=== PATIENT | female | born 1935 | race Caucasian/White ===

== ENCOUNTER 2023-04-11 11:26 | Day surgery (SDC) | payer MEDICARE, BC ==
[2023-04-11] MEDS: Lactated Ringers 1,000 ML IV SCH ×2 (10:35→14:27)
[~2023-04-11 11:26] MED LIST: EPINEPHrine 1 MG/ML SDV ONE; HYDROmorphone 0.5 MG/0.5 ML Syringe IVPUSH PRN; Lactated Ringers 1,000 ML IV SCH; Lidocaine 1% 2 ML ONE; Lidocaine 1%/Sod Bicarbonate in NS 8.4% 1 ML Syringe IDERM PRN; Midazolam 1 MG/ML 2 ML SDV ONE; Morphine 8 MG, EPINEPHrine 0.3 MG, Cefuroxime 750 MG, Ketorolac 30 MG, Sodium Chloride ... PRN; Ondansetron 4 MG/2 ML SDV IVPUSH PRN; Propofol 200 MG/20 ML SDV ONE; Sodium Chloride 0.9% 10 ML Syringe FLUSH PRN; Sodium Chloride 0.9% 10 ML Syringe FLUSH SCH; Tranexamic Acid 1,000 MG/10 ML Vial ONE; Vancomycin 1 GM SDV ONE; ceFAZolin 2 GM Vial ONE; fentaNYL 100 MCG/2 ML SDV IVPUSH PRN; fentaNYL 100 MCG/2 ML SDV ONE
[2023-04-11] MEDS ORDERED: Bupivacaine 0.25% 10 ML SDV ONE (11:28)
[2023-04-11] MEDS ORDERED: Triamcinolone Acetonide 40 MG/ML 1 ML SDV ONE (11:28)
[2023-04-11] MEDS ORDERED: Ropivacaine 0.5% 5 MG/ML 30 ML SDV ONE (11:32)
[2023-04-11] MEDS ORDERED: ePHEDrine 50 MG/ML SDV ONE (12:19)
[2023-04-11] MEDS ORDERED: Acetaminophen/HYDROcodone 325-10 MG Tab PO ONE (14:41)
[2023-04-11] MEDS ORDERED: fentaNYL 100 MCG/2 ML SDV IVPUSH PRN (15:22)
[2023-04-11] MEDS ORDERED: Ondansetron 4 MG/2 ML SDV IVPUSH PRN (15:22)
[2023-04-11] MEDS ORDERED: HYDROmorphone 0.5 MG/0.5 ML Syringe IVPUSH PRN (15:22)
[2023-04-11] MEDS: Sodium Chloride 0.9% 10 ML Syringe FLUSH SCH (20:42)
[2023-04-11] MEDS ORDERED: amLODIPine 5 MG Tab PO SCH (21:00)
[2023-04-11] MEDS: Acetaminophen/HYDROcodone 325-5 MG Tab PO PRN (21:44)
[2023-04-11] MEDS ORDERED: Indapamide 2.5 MG Tab PO SCH (22:30)
[2023-04-12] MEDS: Acetaminophen/HYDROcodone 325-5 MG Tab PO PRN (05:31)
[2023-04-12] MEDS ORDERED: INDAPAMIDE 2.5 MG PO SCH (07:45)
== END 2023-04-12 10:20 | disposition home or self-care (01) ==
LOC: JD.SDS 11:26 → JD.MS 17:50 → JD.SDS 04-12 10:20
PROVIDERS: ATTEND Orthopaedic Surgery
DX: M17.0 Bilateral primary osteoarthritis of knee (principal); G89.29 Other chronic pain; I10 Essential (primary) hypertension; E78.00 Pure hypercholesterolemia, unspecified; K21.9 Gastro-esophageal reflux disease without esophagitis; Z79.899 Other long term (current) drug therapy; Z88.8 Allergy status to other drugs, medicaments and biological substances; Z88.2 Allergy status to sulfonamides; Z79.82 Long term (current) use of aspirin; Z88.6 Allergy status to analgesic agent; Z88.5 Allergy status to narcotic agent; Z87.891 Personal history of nicotine dependence
CPT/HCPCS: 0055T; 20610; 27447; 64447; 73560; 97110; 97116; 97161; A9270; C1713; C1776; J0171; J0690; J0697; J1170; J1885; J2250; J2270; J2704; J2795; J3010; J3301; J3370; J3490; J7120; 01402; 99100